=== PATIENT | male | born 1955 | race Caucasian/White ===

== ENCOUNTER 2018-09-25 15:22 | Emergency (ER) | payer BC, OTHER ==
[~2018-09-25] VITALS: Ht 172.7 cm; Wt 81.6 kg
--- NOTE | 2018-09-25 16:16 | ED Back Pain ---
General Chief Complaint: Cardiac/General Problems Stated Complaint: HIGH BP Nursing Triage Note: PATIENT SENT OVER HERE FROM URGENT CARE FOR HYPERTENSION. REPORTED BLOOD PRESSURE READING 205/120. PATIENT C/O BACK PAIN AND STATES IT IS DUE TO HIS BLOOD PRESSURE BEING ELEVATED. Nursing Sepsis Screen: No Definite Risk Source of Information: Patient, Family Exam Limitations: No Limitations History of Present Illness Date Seen by Provider: September 25, 2018 Time Seen by Provider: 16:02 Initial Comments The patient presents to ER by private conveyance with chief complaint of back pain. He was seen at urgent care and they noted that his blood pressure was high 200/110 and insisted he come to the ER to be evaluated. He's having no chest pain headaches nausea shortness of breath or past medical history of heart attacks or stroke. He does have a history of having a stress test a few years ago. He knows he has high blood pressure and prostatism. His back pain is in his low back chronic for over the past year and has some radiation down his back side of his bottom to just above the right knee. He is more tender on the right side than left. He has been using ibuprofen with modest relief for about 4-6 hours after a dose. For the past week or so however his pain has progressively gotten worse upwards of a 7 out of 10 although presently is 4 out of 10 and so he came to urgent care to see if he can get some relief for it. He is to follow with a doctor at [facility] the since moving here he does not have a doctor nor has he refilled any medications. He was on atenolol unknown dose for his blood pressure and he says it was working fine he did not have an elevated blood pressure while on the medicine. He did run out about a month and a half ago and since that time he checked his blood pressure and it has been elevated significantly. Urgent care got him set up with a PCP, Sonya Watson in 4 days on Saturday. He would like to get started back on some blood pressure medicine. He does not have any known kidney dysfunction. He does have a history of prostatism and for the past several weeks he's been noticing increased frequency and feeling of incomplete emptying. No burning or discharge. No fevers chills. He was on flowtrol, and herbal prostate control remedy. Allergies and Home Medications Allergies Coded Allergies: morphine (Verified Allergy, Unknown, 09/25/18) Patient Home Medication List Home Medication List Reviewed: Yes Review of Systems Constitutional: No chills, No diaphoresis EENTM: No ear discharge, No hearing loss, No ear pain Respiratory: No cough, No short of breath Cardiovascular: No chest pain, No edema Gastrointestinal: No abdominal pain, No constipation, No diarrhea, No dysphagia , No nausea Genitourinary: No discharge, No dysuria Musculoskeletal: No back pain, No joint pain Past Ewgntwu-Bgykww-Vyzlwx Hx Patient Social History Alcohol Use: Occasionally Uses Recreational Drug Use: No Smoking Status: Never a Smoker 2nd Hand Smoke Exposure: No Recent Foreign Travel: No Contact w/Someone Who Travel: No Recent Infectious Disease Expo: No Recent Hopitalizations: No Physical Abuse: No Sexual Abuse: No Mistreated: No Fear: No Seasonal Allergies Seasonal Allergies: No Past Medical History Bladder Surgery, Orthopedic Respiratory: No Cardiac: Yes Hypertension Neurological: Yes (RESTLESS LEG SYNDROME) Genitourinary: Yes Benign Prostatic Hyperpl Gastrointestinal: No Musculoskeletal: No Endocrine: No HEENT: No Cancer: No Psychosocial: No Integumentary: No Blood Disorders: No Physical Exam Vital Signs Vital Signs - First Documented 09/25/18 15:35 Temp 98.7 Pulse 81 Resp 20 B/P (MAP) 176/146 (156) Pulse Ox 95 O2 Delivery Room Air Capillary Refill : Less Than 3 Seconds Height, Weight, BMI Height: 5'8.00" Weight: 180lbs. oz. [id number]; BMI Method:Stated General Appearance: No Apparent Distress, WD/WN HEENT: PERRL/EOMI, Pharynx Normal, Moist Mucous Membranes Neck: Full Range of Motion, Normal Inspection Cardiovascular: Regular Rate, Rhythm, No Edema, Normal Peripheral Pulses Respiratory: No Accessory Muscle Use, No Respiratory Distress Peripheral Pulses: 2+ Dorsalis Pedis (R), 2+ Left Dors-Pedis (L), 2+ Radial Pulses (R), 2+ Radial Pulses (L) Back: Normal Inspection, Vertebral Tenderness (midline and bilateral lumbar tenderness especially over the L5-S1 facet joint.) Extremity: Normal Capillary Refill, Normal Inspection, Normal Range of Motion, Non Tender, No Calf Tenderness, No Pedal Edema Neurologic/Psychiatric: Alert, Oriented x3, No Motor/Sensory Deficits, Normal 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, 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, Other (bilateral patellar reflexes 3 out of 4 symmetric) Skin: Normal Color, Warm/Dry Progress/Results/Core Measures Results/Orders Lab Results Laboratory Tests Test 09/25/18 16:15 09/25/18 16:45 Range/Units Urine Color YELLOW Urine Clarity CLEAR Urine pH 6.5 5-9 Urine Specific [place] 1.010 L 1.016-1.022 Urine Protein NEGATIVE NEGATIVE Urine Glucose (UA) NEGATIVE NEGATIVE Urine Ketones 1+ H NEGATIVE Urine Nitrite NEGATIVE NEGATIVE Urine Bilirubin NEGATIVE NEGATIVE Urine Urobilinogen 0.2 NORMAL MG/DL Urine Leukocyte Esterase NEGATIVE NEGATIVE Urine RBC (Auto) NEGATIVE NEGATIVE Urine RBC 0-2 /HPF Urine WBC 0-2 /HPF Urine Squamous Epithelial Cells NONE /HPF Urine Crystals NONE /LPF Urine Bacteria NEGATIVE /HPF Urine Casts NONE /LPF Urine Mucus NONE /LPF Urine Culture Indicated NO White Blood Count 9.5 4.3-11.0 10^3/uL Red Blood Count 4.90 4.35-5.85 10^6/uL Hemoglobin 14.0 13.3-17.7 G/DL Hematocrit 43 40-54 % Mean Corpuscular Volume 88 80-99 FL Mean Corpuscular Hemoglobin 29 25-34 PG Mean Corpuscular Hemoglobin Concent 32 32-36 G/DL Red Cell Distribution Width 14.6 H 10.0-14.5 % Platelet Count 307 130-400 10^3/uL Mean Platelet Volume 10.4 7.4-10.4 FL Neutrophils (%) (Auto) 57 42-75 % Lymphocytes (%) (Auto) 31 12-44 % Monocytes (%) (Auto) 8 0-12 % Eosinophils (%) (Auto) 2 0-10 % Basophils (%) (Auto) 2 0-10 % Neutrophils # (Auto) 5.4 1.8-7.8 X 10^3 Lymphocytes # (Auto) 3.0 1.0-4.0 X 10^3 Monocytes # (Auto) 0.8 0.0-1.0 X 10^3 Eosinophils # (Auto) 0.1 0.0-0.3 10^3/uL Basophils # (Auto) 0.1 0.0-0.1 10^3/uL Sodium Level 141 135-145 MMOL/L Potassium Level 4.1 3.6-5.0 MMOL/L Chloride Level 101 98-107 MMOL/L Carbon Dioxide Level 21 21-32 MMOL/L Anion Gap 19 H 5-14 MMOL/L Blood Urea Nitrogen 14 7-18 MG/DL Creatinine 0.69 0.60-1.30 MG/DL Estimat Glomerular Filtration Rate > 60 BUN/Creatinine Ratio 20 Glucose Level 85 70-105 MG/DL Calcium Level 9.0 8.5-10.1 MG/DL Corrected Calcium 8.6 8.5-10.1 MG/DL Total Bilirubin 0.6 0.1-1.0 MG/DL Aspartate Amino Transf (AST/SGOT) 21 5-34 U/L Alanine Aminotransferase (ALT/SGPT) 18 0-55 U/L Alkaline Phosphatase 47 40-136 U/L Total Protein 7.3 6.4-8.2 GM/DL Albumin 4.5 3.2-4.5 GM/DL My Orders Orders - ARSLAN COLE Ua Culture If Indicated (09/25/18 16:14) Post Void Residual Assessment (09/25/18 16:14) Cbc With Automated Diff (09/25/18 16:24) Comprehensive Metabolic Panel (09/25/18 16:24) Vital Signs/I&O 09/25/18 15:35 Temp 98.7 Pulse 81 Resp 20 B/P (MAP) 176/146 (156) Pulse Ox 95 O2 Delivery Room Air Blood Pressure Mean: 156 Progress Progress Note : Time: 16:30 Progress Note The patient's back pain does seem to be organic, probably related to osteoarthritis and there are no red flag signs. We obtained a urinalysis and did a bladder scan which showed less than 40 cc after voiding. He has both warmth in his feet and good pulses as well as he is neurologically intact. The back pain and therefore does not seem to be related to any kind of aortic aneurysm as it is reproducible by direct palpation over L5-S1. He probably does have prostatism given his history of frequency but he has a primary care appointment in 4 days and they can refer him to urology or start Flomax at their own discretion. His asymptomatic, hypertensive urgency has come down from 200/110 to 180/100 just with resting. It would be reasonable to initiate him on a blood pressure medicine. He is neurologically intact without any evidence of strokelike symptoms. He was on atenolol which would be a second or third line choice of blood pressure medicine. Elect to put him on first line and since he does not have diabetes think hydrochlorothiazide would be a good choice. We will discuss this choice with him and would need to obtain some basic labs before we initiate it. We should assure that he does not have kidney dysfunction or electrolyte disorder. He has consented. Departure Impression Primary Impression: Asymptomatic hypertensive urgency Additional Impressions: Lumbago with sciatica, right side Qualified Codes: M54.41 - Lumbago with sciatica, right side; G89.29 - Other chronic pain Prostatism Disposition: HOME, SELF-CARE Condition: Improved Departure-Patient Inst. Decision time for Depature: 17:49 Referrals: SONYA WATSON APRN (PCP/Family) Primary Care Physician Patient Instructions: High Blood Pressure in Adults, Low Back Pain (DC) Add. 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 For your low back pain I suggest you get a back brace and wear it on every day that you're having back pain as will help with your posture and help you get over it sooner. Use heat as well as topical creams such as icy hot, Biofreeze etc. Use Tylenol 1000 mg every 8 hours and or ibuprofen 800 mg every 8 hours as necessary for back pain. You can use topical Capsaicin such as Salon Pas patches. All discharge instructions reviewed with patient and/or family. Voiced understanding. Scripts Hydrochlorothiazide (Hydrochlorothiazide) 12.5 Mg Tablet 12.5 MG PO DAILY for 14 Days, #14 TAB 0 Refills Prov: ARSLAN COLE 09/25/18 Copy Copies To 1: LINO ELI TITUS J September 25, 2018 16:16
[2018-09-25 16:28] LABS: BACTERIA,URINE NEGATIVE /HPF; BILIRUBIN,URINE NEGATIVE (NEGATIVE); CLARITY,URINE CLEAR; COLOR,URINE YELLOW; GLUCOSE, URINE (UA) NEGATIVE (NEGATIVE); KETONES,URINE 1+ (NEGATIVE); LEUKOCYTE ESTERASE ,URINE NEGATIVE (NEGATIVE); NITRITE,URINE NEGATIVE (NEGATIVE); PH,URINE 6.5 (5-9); PROTEIN,URINE NEGATIVE (NEGATIVE); RBC,URINE 0-2 /HPF; UROBILINOGEN,URINE 0.2 MG/DL (NORMAL); WBC,URINE 0-2 /HPF
[2018-09-25 16:54] LABS: BASOPHILS % (AUTO) 2 % (0-10); EOSINOPHILS % (AUTO) 2 % (0-10); HEMATOCRIT 43 % (40-54); LYMPHOCYTES % (AUTO) 31 % (12-44); MEAN CORPUSCULAR HEMOGLOBIN 29 PG (25-34); MEAN CORPUSCULAR HGB CONC 32 G/DL (32-36); MEAN CORPUSCULAR VOLUME 88 FL (80-99); MEAN PLATELET VOLUME 10.4 FL (7.4-10.4); MONOCYTES % (AUTO) 8 % (0-12); NEUTROPHILS % (AUTO) 57 % (42-75); PLATELET COUNT 307 10^3/uL (130-400); RED CELL DISTRIBUTION WIDTH 14.6 % (10.0-14.5); WHITE BLOOD COUNT 9.5 10^3/uL (4.3-11.0)
[2018-09-25 16:55] LABS: BASOPHILS # (AUTO) 0.1 10^3/uL (0.0-0.1); EOSINOPHILS # (AUTO) 0.1 10^3/uL (0.0-0.3); MONOCYTES # (AUTO) 0.8 X 10^3 (0.0-1.0); NEUTROPHILS # (AUTO) 5.4 X 10^3 (1.8-7.8)
[2018-09-25 17:17] LABS: ALANINE AMINOTRANSFERASE 18 U/L (0-55); ALBUMIN 4.5 GM/DL (3.2-4.5); ALKALINE PHOSPHATASE 47 U/L (40-136); BILIRUBIN,TOTAL 0.6 MG/DL (0.1-1.0); BUN/CREATININE RATIO 20; CARBON DIOXIDE 21 MMOL/L (21-32); CHLORIDE 101 MMOL/L (98-107); CREATININE SERUM 0.69 MG/DL (0.60-1.30); GFR ESTIMATED > 60; GLUCOSE 85 MG/DL (70-105); POTASSIUM 4.1 MMOL/L (3.6-5.0); SODIUM 141 MMOL/L (135-145); TOTAL PROTEIN 7.3 GM/DL (6.4-8.2)
[2018-09-25] MEDS ORDERED: HYDR12.56 PO (17:52)
[2018-09-25 18:21] VITALS: BP 181/91
== END 2018-09-25 18:17 | disposition home or self-care (01) ==
LOC: ER FS 15:24
DX: I16.0 Hypertensive urgency (principal); M54.41 Lumbago with sciatica, right side; N40.1 Benign prostatic hyperplasia with lower urinary tract symptoms; R35.0 Frequency of micturition; I10 Essential (primary) hypertension; G25.81 Restless legs syndrome; Z88.5 Allergy status to narcotic agent
CPT/HCPCS: 36415; 80053; 81000; 85025

== ENCOUNTER → 2022-04-02 | Outpatient (CLI) | payer MEDICARE, OTHER ==
[~2022-04-02] MED LIST: HYDR12.56 PO
--- NOTE | 2022-04-02 17:03 | Diagnostic Imaging Report ---
PROCEDURE: MRI lumbar spine. TECHNIQUE: Multiplanar, multisequence MRI of the lumbar spine was performed without contrast. DATE: April 02, 2022. COMPARISON: None. INDICATION: 66-year-old male, chronic low back pain. FINDINGS: There is grade 1 anterolisthesis of L4 on L5 which measures 4 mm. There is no evidence of a diffuse marrow infiltrating or replacing process. There is a benign L1 vertebral body hemangioma. There is no identified acute compression deformity or fracture. There are signal changes near the superior endplate of L4 which most likely reflect Modic endplate degenerative related changes as well as at the level of the superior endplate of L2. The visualized cord and conus medullaris is unremarkable and terminates at the L1 level. There is moderate disc height loss at L1-L2. There is mild to moderate disc height loss at L2-L3. There is mild disc height loss at L3-L4. There is moderate disc height loss at L4-L5. There is mild disc height loss at L5-S1. There are mild disc degenerative changes of the lower thoracic spine. L1-L2: There is very mild diffuse disc bulge. There is a trace left facet joint effusion without pronounced facet joint arthritis. There is no high-grade foraminal narrowing. There is no spinal canal stenosis. There is prominence of the posterior epidural fat. L2-L3: There is mild diffuse disc bulge. There is mild narrowing of the bilateral lateral recesses. The facet joints and ligamentum flavum are unremarkable. There is mild bilateral foraminal narrowing. There is mild spinal canal stenosis. There is prominence of the posterior epidural fat. L3-L4: There is a diffuse disc bulge and annular tear. The facet joints and ligamentum flavum are unremarkable. There is moderate right and mild left foraminal narrowing. There is mild spinal canal stenosis. There is prominence of the posterior epidural fat. L4-L5: There is uncovering of the disc relating to the anterolisthesis as well as mild diffuse disc bulge. There is mild to moderate narrowing of the bilateral lateral recesses. There are advanced bilateral facet degenerative changes and ligamentum flavum hypertrophy. There is moderate bilateral foraminal narrowing. There is moderate to severe spinal canal stenosis. L5-S1: There is mild diffuse disc bulge. There are moderate bilateral facet degenerative changes, right greater than left. There is moderate bilateral foraminal narrowing. There is mild spinal canal stenosis. IMPRESSION: 1. Multilevel degenerative changes of the lumbar spine as described in detail level by level above. 2. No identified focal concerning bone lesion, acute compression deformity, or fracture. Dictated by: Dictated on workstation # [id number]
== END ==
LOC: RAD 14:00
PROVIDERS: ATTEND Family Medicine
DX: M47.816 Spondylosis without myelopathy or radiculopathy, lumbar region (principal); M47.817 Spondylosis without myelopathy or radiculopathy, lumbosacral region; M51.26 Other intervertebral disc displacement, lumbar region; M51.27 Other intervertebral disc displacement, lumbosacral region; M51.36 Other intervertebral disc degeneration, lumbar region; M48.061 Spinal stenosis, lumbar region without neurogenic claudication; M48.07 Spinal stenosis, lumbosacral region
CPT/HCPCS: 72148